=== PATIENT | male | born 1935 | race Caucasian/White ===

== ENCOUNTER 2016-05-18 19:33 | Inpatient (IN) | payer MEDICARE, OTHER ==
--- NOTE | ~2016-05-18 | DS ---
Discharge Summary [place] [id number] [facility] [place] [address] NAME: KAUSHAL KAUFMAN : 33 STATUS : DIS IN PAT#: [id number] AGE: 80 ADM/REG DATE : 05/19/16 MR#: [id number] REPORT SERV DATE: 05/23/16 DICTATED BY: UBALDO MARIE DATE: 05/22/16 REPORT STATUS : Draft TRANSCRIBED BY: MODL DATE: 05/22/16 ADMISSION DATE: 05/19/2016 DISCHARGE DATE: 05/22/2016 DISCHARGE DIAGNOSES: 1. Anaphylactic reaction to penicillin with hypotension. 2. Acute systolic congestive heart failure with ejection fraction of 30% to 35%. 3. Recent left-sided facial abscess incised and drained by dentist. 4. Obesity with body mass index of 36.3. 5. Suspected obstructive sleep apnea. 6. Osteoarthritis of knees. 7. Hypoxic respiratory failure, resolved. HISTORY: This patient states he developed a sore on the inside of his mouth, went to his dentist on 05/18/2016. He reports they told him that the abscess was in the inner buccal mucosa. They did an incision and drainage. They gave him amoxicillin. He took his first dose around 5:00 p.m. and within 10 minutes, started to have itching and tingling all over. He stated he perceived bright lights in front of both eyes, later felt like his throat was closing. A friend advised his to drive him to the emergency room. On arrival, his blood pressure 75/48, O2 saturation 86%, pulse 52, and respirations 16. The ER gave him Benadryl and Solu-Medrol and referred him to our team for inpatient care. He was continued on Solu-Medrol for several days and transitioned to prednisone. He was kept on Levaquin instead of a penicillin-type antibiotic. The abscess on the left cheek essentially was rapidly resolving. The patient was noted to continue to be hypoxic. His blood gas on presentation on room air pH 7.44, pCO2 of 35, PO2 of 57, and bicarbonate 23.5. His chest x-ray on admission to the hospital revealed borderline cardiomegaly with some pulmonary vascular congestion. He did receive some diuretics and had a chest x-ray followup on 05/21/2016 that showed improvement of the pulmonary edema, but not complete clearing. The patient has no history of cardiac disease and did have an echocardiogram on 08/08/2015 showing normal left ventricular ejection fraction of 55%. He also had a nuclear stress test on 08/15/2015 revealing no ischemia and ejection fraction greater than 60%. This was preop before he had a shoulder surgery. Currently, we repeated his echocardiogram on 05/21/2016, left atrial size 3.7 cm, left ventricular ejection fraction reduced to 30% to 35%, otherwise, normal findings. He has a stable left bundle-branch block pattern. Therefore, the patient has new acute systolic congestive heart failure. It is unclear whether this occurred as a reaction to the stress with the anaphylaxis. His family feels that he has been gradually more dyspneic for many months to the point where he can only walk short distances. The patient denies this, but the and cvulzi-of-udg both insist on it. He does have a history of obstructive sleep apnea on a sleep study years ago and was advised to wear a CPAP mask, but states he never tried it. He does have obesity of 36.3. His does describe some daytime somnolence, so he may indeed have underlying obstructive sleep apnea that has led to this point. He was also using a moderate amount of hkgu-adq-mthwyqz Discharge Summary [address] [place]. [address] NAME: KAUSHAL KAUFMAN : 34 STATUS : DIS IN PAT#: [id number] AGE: 80 ADM/REG DATE : 05/19/16 MR#: [id number] REPORT SERV DATE: 05/23/16 DICTATED BY: UBALDO MARIE DATE: 05/22/16 REPORT STATUS : Draft TRANSCRIBED BY: NASIM DATE: 05/22/16 Jamie. I have talked with him twice in the presence of his and cdxbmh-uz-ayl and told him not to use any Aleve, ibuprofen, Advil, Motrin, only use Tylenol for pain. I have also advised him of a 4-g sodium diet, how to track it, monitor, using the labels on food packages. I have also advised him about the importance of measuring his weight every day and if he gains as much as 6 pounds in three days, he is to call his PCP. 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 We are starting congestive heart failure therapy medicines. He will see his PCP in followup. They can decide whether they want to refer him to Cardiology for further nuclear stress test or heart catheterization or just monitoring of his echo over time as well as setting him up for a future sleep study if the patient is willing. DISCHARGE MEDICATIONS: Will include Levaquin 750 mg p.o. daily on 05/22/2016 and 05/23/2016 and Tylenol 650 q.6 hours p.r.n. pain. He uses wfjf-zdq-wavndyu Juice Plus And Men's Plus vitamin as well as some liver vitamin, joint vitamin, glucosamine, Super Beta prostate, and a probiotic. We stopped his amoxicillin obviously, we have stopped his Aleve. We have added aspirin 81 mg daily, Coreg 3.125 mg p.o. b.i.d., lisinopril 5 mg daily, and Lipitor 40 mg daily for his new congestive heart failure. Also, the patient did receive some fluid initially as saline boluses for the first several days, but those were stopped on 05/21/2016, and by the afternoon of 05/21/2016, he was able to be off oxygen completely with his O2 saturation 93% at rest and 94% walking with no oxygen on. His procalcitonin here was 0.28. His urine Legionella and strep antigens were negative, and his influenza A and B were negative. His white count was 18,000 when he got here and has stayed elevated, but he has been on steroids after he arrived. I spent 49 minutes today with the patient and with his and litxuk-xu-mfn and with discharge planning. MONICA/NASIM Ubaldo Marie M.D. / [id number] CC: Tin Castillo M.D.
--- NOTE | ~2016-05-18 | HP ---
History And Physical [place] [address] [facility] [place]. [address] NAME: KAUSHAL CONNER : 33 STATUS : ADM Armida PAT#: [id number] AGE: 80 ADM/REG DATE : 05/18/16 MR#: [id number] REPORT SERV DATE: 05/19/16 DICTATED BY: CRISTÓBAL BELLO DATE: 05/19/16 REPORT STATUS : Draft TRANSCRIBED BY: MODL DATE: 05/19/16 DATE OF ADMISSION: 05/18/2016 CHIEF COMPLAINT: Acute allergic reaction after taking an antibiotic. HISTORY OF PRESENT ILLNESS: This is an 80-year-old male, who presents to the emergency room at [facility] with the above-mentioned complaint. History is obtained from the patient, his family who is at bedside, and reviewing data available on the H.BLOOM system. According to Mr. Conner, he had been to his dentist today when a small abscess in his cheek was drained. This was done primarily without any local anesthetic and apparently they capo linda pus. He was given a prescription for amoxicillin for outpatient oral antibiotic therapy, which he got filled on his way home. He took one right away and about 15 minutes later, started having intense pruritus all over his body, so much that he had to stop the car and get out and scratch. He drove along to a friend's house, parked in his driveway as he had something to do there. When he mentioned this to his friend who happens to be a doctor as well, he said he was having an allergic reaction and asked the patient to go straight to the emergency room. His took over, drove the car, and they came right here. By this time, he had some swelling in his neck or throat and had difficulty swallowing as well. There was no drooling. In the emergency room upon arrival, he was hypoxemic and his blood pressure was 75/48. He also was found to have leukocytosis and pulmonary edema on his chest x-ray. He was started on IV steroids, started on fluid, supplemental oxygen therapy, and within a short time, improved. His saturations came right back up to 95. His pressures were stable and his constitutional symptoms had resolved. Hospitalist Service is asked to admit him for further evaluation and treatment. At the time of my evaluation, he denied any chest pain, palpitations, or orthopnea. He did not have a cough, although two weeks ago, he had a dry cough with flu-like symptoms and he thought he had the flu. No hemoptysis, night sweats, or weight loss. He did not have any recent falls, loss of consciousness. No history of fevers or chills. No history of nausea, vomiting, diarrhea, hematemesis, hematochezia, or hematuria. No other history of recent travel or exposures other than those mentioned above. PAST MEDICAL HISTORY: Significant for hypertension. SOCIAL HISTORY: He has about 52-diep-cckm history of smoking, although he has not smoked in about 30-40 years. He denies recreational drug use or alcohol. FAMILY HISTORY: Noncontributory. MEDICATIONS: At home were reviewed by me in the chart today and reordered by me. REVIEW OF SYSTEMS: History And Physical [address] [address] NAME: KAUSHAL CONNER : 34 STATUS : ADM Armida PAT#: [id number] AGE: 80 ADM/REG DATE : 05/18/16 MR#: [id number] REPORT SERV DATE: 05/19/16 DICTATED BY: CRISTÓBAL BELLO DATE: 05/19/16 REPORT STATUS : Draft TRANSCRIBED BY: NSAIM DATE: 05/19/16 As in history of present illness. All other systems were reviewed in detail and are quite unremarkable. PHYSICAL EXAMINATION: CONSTITUTIONAL: This is a pleasant 80-year-old, not in any acute distress. HEENT: His head is atraumatic, normocephalic. He is alert, awake, oriented to time, place, and person. Pupils are equal, reacting to light and accommodating. External ocular muscles are intact. Membranes are moist and pink. Sclerae are nonicteric. NECK: Supple with no jugular venous distention, lymphadenopathy, or thyromegaly. LUNGS: Clear to auscultation with no wheezes, rubs, or crackles. HEART: Sounds were regular with no murmurs, rubs, or gallops. ABDOMEN: Soft, nontender. Bowel sounds are present. EXTREMITIES: Showed bilateral pitting lower extremity edema with stockings as well. They are not clear on why or what is going on with his lower extremities. NEUROLOGIC: Grossly intact. No focal sensory or motor deficits. Higher functions appeared intact. VITAL SIGNS: Today showed a temperature of 97.5, pulse 52, respirations 16 a minute, blood pressure was 145/72, and oxygen saturations were 96% on 2 L via nasal cannula. LABORATORY DATA: Reviewed on the H.BLOOM system showed a pH of 7.43 on arterial blood gas, pCO2 was 37, PaO2 of 58, and bicarbonate was 23.5; this was on room air. CMP showed sodium of 140, potassium was 4.4, chloride 103 and CO2 of 29, BUN was 18 with a creatinine of 1.12, blood glucose was 117. Troponin was 0.07 and BNP was 240. CBC showed a white blood cell count of 18,000. Otherwise normal hemoglobin, hematocrit, and platelet count. Urinalysis was not done today. Films of the chest x-ray were reviewed by me on the PACS today and interpreted by me. Today's films were compared to prior films also. Today's films showed bilateral patchy infiltrates consistent with pulmonary edema versus pneumonia. A 12-lead EKG done in the emergency room was reviewed and interpreted by me. There is sinus rhythm with a rate of 74 per minute with frequent PVCs. There is left bundle-branch block. IMPRESSION: 1. Acute allergic reaction to amoxicillin. 2. Hypoxemia. 3. Hypotension. 4. Leukocytosis. 5. Bilateral pulmonary infiltrates, possibly from pneumonia versus pulmonary edema. 6. Hypertension. 7. Oral abscess status post drainage. PLAN: We will admit Mr. Conner to the Hospitalist Service with telemetry for a 24-hour observation period. We will start him on IV steroids for his allergic reaction. We will continue this. We will obtain cultures, start him on empiric IV antibiotics for at this time. Start him on bronchodilators and supplemental oxygen therapy to titrate his saturations to maintain them greater than 92%. His hypotension has currently resolved, so has his hypoxemia. We will get CBC and CMP in the morning along with an ABG in the morning on room air. Meanwhile, we will place him on unfractionated heparin for DVT prophylaxis while he is here. I have discussed the above plans with the patient and his family. Their History And Physical [address] [place]. [address] NAME: KAUSHAL CONNER : 33 STATUS : ADM Armida PAT#: [id number] AGE: 80 ADM/REG DATE : 05/18/16 MR#: [id number] REPORT SERV DATE: 05/19/16 DICTATED BY: CRISTÓBAL BELLO DATE: 05/19/16 REPORT STATUS : Draft TRANSCRIBED BY: MODL DATE: 05/19/16 questions were answered in great detail and they are agreeable to the above recommendations. Hospitalist Service will be following him during his stay here. /NASIM Cristóbal Bello M.D. / [id number] CC: Drake Gan Jr, MD
[2016-05-18 20:12] LABS: BASOPHILS 0.2 %; BASOPHILS ABSOLUTE 0.04 10/3/uL (0.0-0.16); EOSINOPHILS ABSOLUTE 0.36 10/3/uL (0.0-0.53); ER CBC TAT 0 Hrs 15 Mins; IMMATURE GRANULOCYTES 0.8 %; IMMATURE GRANULOCYTES ABSOLUTE 0.14 10/3/uL (0.0-0.11); LYMPHOCYTES 7.8 %; LYMPHOCYTES ABSOLUTE 1.41 10/3/uL (0.67-4.30); MEAN CORPUS HGB CONC 33.3 g/dL (32.0-36.0); MEAN CORPUSCULAR HEMOGLOB 31.5 pg (26.0-34.0); MEAN CORPUSCULAR VOLUME 94.6 fL (80-100); MEAN PLATELET VOLUME 10.8 fL (9.2-13.0); MONOCYTES 10.7 %; MONOCYTES ABSOLUTE 1.94 10/3/uL (0.21-1.20); NEUTROPHILS 78.5 %; NEUTROPHILS ABSOLUTE 14.17 10/3/uL (2.02-8.40); PLATELET COUNT 274 10/3/uL (150-400); RBC DISTRIBUTION WIDTH 13.9 % (12.0-16.0); RED CELL COUNT 5.39 10/6/uL (4.7-6.1); WHITE BLOOD CELLS 18.1 10/3/uL (4.5-10.5)
[2016-05-18 20:13] LABS: MANUAL DIFF NO %
[2016-05-18 20:37] LABS: BAND NEUTROPHILS 2 %; ER DIFF TAT 0 Hrs 40 Mins; LYMPHOCYTES 6 %; LYMPHOCYTES ABSOLUTE (CALC) 1.09 10/3/uL (0.67-4.30); MONOCYTES 6 %; MONOCYTES ABSOLUTE (CALC) 1.09 10/3/uL (0.21-1.20); NEUTROPHILS ABSOLUTE (CALC) 15.93 10/3/uL (2.02-8.40); OVALOCYTES 1+ (3-10/OIF) (0-2/OIF); PLATELET ESTIMATE ADQ (ADEQUATE); SEGMENTED NEUTROPHIL (0) 86 %; SPHEROCYTES FEW (3-10/OIF); TEARDROP SHAPED RBCS OCC (0-2/OIF); TOTAL NUCLEATED CELLS 100
[2016-05-18 21:38] LABS: INTERNATIONAL NORMAL RATI 1.2 UNITS (-); PARTIAL THROMBO TIME 27.8 SEC (22.5-37.2); PROTIME (NOT ORD) 14.6 SEC (12.0-14.5)
[2016-05-18 21:49] LABS: BUN (BLOOD UREA NITROGEN) 18 MG/DL (6-23); CALCIUM, SERUM 8.7 MG/DL (8.5-10.4); CHLORIDE, SERUM 103 MMOL/L (96-112); CO2 (CARBON DIOXIDE) 29 MMOL/L (24-34); CREATININE 1.12 MG/DL (0.70-1.30); GFR AFRICAN AMERICAN 71 ML/MIN (>=60); GFR NON AFRICAN AMERICAN 61 ML/MIN (>=60); GLUCOSE, SERUM 117 MG/DL (60-99); POTASSIUM, SERUM 4.4 MMOL/L (3.5-5.3); SODIUM, SERUM 140 MMOL/L (135-148)
[2016-05-18 21:51] LABS: CHEST PAIN PROFILE TAT 0 Hrs 24 Mins; TROPONIN I 0.07 NG/ML (<0.05)
[2016-05-18] MEDS ORDERED: [UNRECOGNIZED DRUG - OTHER] PO (22:59)
[2016-05-18] MEDS ORDERED: JUICE PLUS PO (22:59)
[2016-05-18] MEDS ORDERED: JOINT VITAMIN PO (23:03)
[2016-05-18] MEDS ORDERED: GLUCOSAMINEPO PO (23:03)
[2016-05-18] MEDS ORDERED: VITAMIN PO (23:03)
[2016-05-18] MEDS ORDERED: PROBIOTIC PO (23:04)
[2016-05-18] MEDS ORDERED: AMOXIL500 MG PO (23:04)
[2016-05-18] MEDS ORDERED: SUPER BETA PROSTATE PO (23:04)
[2016-05-18] MEDS ORDERED: ALEVE220 MG PO (23:05)
[2016-05-18 23:35] LABS: BE (BASE EXCESS) -0.4 MEQ/L (0 +/- 2.5); HCO3 (ACTUAL BICARBONATE) 23.5 MEQ/L (23-27); INSTRUMENT SERIAL # 8087; PCO2 (CO2 TENSION) 37 MMHG (35-45); PO2 (O2 TENSION) 58 MMHG (79-93); pH 7.43 (7.37-7.43)
[2016-05-18 23:36] LABS: ALLENS TEST Pos; CARBOXYHEMOGLOBIN 1.3 % (0-3); HEMOBLOGIN CONTENT 15.9 G/DL (14-18); METHEMOGLOBIN 0.4 % (0-3); O2 CONTENT 20.1 VOL% (18-24); SAMPLE Arterial
[2016-05-19 00:13] LABS: INFLUENZA A SCREEN NEGATIVE (NEGATIVE); INFLUENZA B SCREEN NEGATIVE (NEGATIVE)
[2016-05-19 00:55] LABS: ASCORBIC ACID (UR NOT ORDER) 20 (NEG); BILIRUBIN, URINE NEGATIVE (NEG); KETONE, URINE NEGATIVE (NEG); LEUKOCYTE ESTERASE(NOT OR NEG (NEG); WBC (NOT ORDERED) (RFLEX) 1 (0-5)
[2016-05-19 04:14] LABS: BASOPHILS 0 %; EOSINOPHILS 0.1 %; EOSINOPHILS ABSOLUTE 0.01 10/3/uL (0.0-0.53); HEMOGLOBIN 15.1 g/dL (13.6-17.8); IMMATURE GRANULOCYTES 0.3 %; IMMATURE GRANULOCYTES ABSOLUTE 0.03 10/3/uL (0.0-0.11); LYMPHOCYTES 9.1 %; LYMPHOCYTES ABSOLUTE 0.84 10/3/uL (0.67-4.30); MEAN CORPUS HGB CONC 33.5 g/dL (32.0-36.0); MEAN CORPUSCULAR VOLUME 95.6 fL (80-100); MEAN PLATELET VOLUME 9.4 fL (9.2-13.0); MONOCYTES 1.2 %; MONOCYTES ABSOLUTE 0.11 10/3/uL (0.21-1.20); NEUTROPHILS 89.3 %; RBC DISTRIBUTION WIDTH 13.4 % (12.0-16.0); RED CELL COUNT 4.72 10/6/uL (4.7-6.1)
[2016-05-19 04:20] LABS: HEMATOCRIT 45.1 % (40.0-51.0); MANUAL DIFF NO %; PLATELET COUNT 191 10/3/uL (150-400); WHITE BLOOD CELLS 9.2 10/3/uL (4.5-10.5)
[2016-05-19 04:22] LABS: BUN (BLOOD UREA NITROGEN) 18 MG/DL (6-23); CALCIUM, SERUM 8.6 MG/DL (8.5-10.4); CHLORIDE, SERUM 105 MMOL/L (96-112); CO2 (CARBON DIOXIDE) 28 MMOL/L (24-34); CREATININE 1.15 MG/DL (0.70-1.30); GFR AFRICAN AMERICAN 69 ML/MIN (>=60); GFR NON AFRICAN AMERICAN 59 ML/MIN (>=60); PHOSPHORUS, SERUM 3.3 MG/DL (2.5-4.5); POTASSIUM, SERUM 4.8 MMOL/L (3.5-5.3); SODIUM, SERUM 141 MMOL/L (135-148)
[2016-05-19 04:24] LABS: GLUCOSE, SERUM 187 MG/DL (60-99)
[2016-05-19 05:45] LABS: ALLENS TEST Pos; BE (BASE EXCESS) -0.1 MEQ/L (0 +/- 2.5); CARBOXYHEMOGLOBIN 0.5 % (0-3); HCO3 (ACTUAL BICARBONATE) 23.5 MEQ/L (23-27); HEMOBLOGIN CONTENT 15.5 G/DL (14-18); INSTRUMENT SERIAL # 35151; METHEMOGLOBIN 0.5 % (0-3); O2 CONTENT 19.5 VOL% (18-24); OPERATOR ID 35190; PCO2 (CO2 TENSION) 35 MMHG (35-45); PO2 (O2 TENSION) 57 MMHG (79-93); SAMPLE Arterial; pH 7.44 (7.37-7.43)
[2016-05-20 05:15] LABS: BASOPHILS 0 %; EOSINOPHILS 0 %; HEMOGLOBIN 13.5 g/dL (13.6-17.8); IMMATURE GRANULOCYTES 0.4 %; IMMATURE GRANULOCYTES ABSOLUTE 0.07 10/3/uL (0.0-0.11); LYMPHOCYTES 4.5 %; MEAN CORPUS HGB CONC 33.3 g/dL (32.0-36.0); MEAN CORPUSCULAR HEMOGLOB 31.8 pg (26.0-34.0); MEAN CORPUSCULAR VOLUME 95.3 fL (80-100); MEAN PLATELET VOLUME 9.3 fL (9.2-13.0); MONOCYTES 4.9 %; MONOCYTES ABSOLUTE 0.98 10/3/uL (0.21-1.20); NEUTROPHILS 90.2 %; NEUTROPHILS ABSOLUTE 18.04 10/3/uL (2.02-8.40); PLATELET COUNT 197 10/3/uL (150-400); RBC DISTRIBUTION WIDTH 13.6 % (12.0-16.0); RED CELL COUNT 4.25 10/6/uL (4.7-6.1)
[2016-05-20 05:20] LABS: HEMATOCRIT 40.5 % (40.0-51.0); MANUAL DIFF NO %
[2016-05-20 05:29] LABS: CHLORIDE, SERUM 104 MMOL/L (96-112); CO2 (CARBON DIOXIDE) 24 MMOL/L (24-34); CREATININE 1.33 MG/DL (0.70-1.30); GFR AFRICAN AMERICAN 58 ML/MIN (>=60); GFR NON AFRICAN AMERICAN 50 ML/MIN (>=60); GLUCOSE, SERUM 179 MG/DL (60-99); PHOSPHORUS, SERUM 2.8 MG/DL (2.5-4.5); POTASSIUM, SERUM 4.5 MMOL/L (3.5-5.3); SODIUM, SERUM 141 MMOL/L (135-148)
[2016-05-20 05:35] LABS: BUN (BLOOD UREA NITROGEN) 34 MG/DL (6-23)
[2016-05-21 04:45] LABS: BASOPHILS 0.1 %; BASOPHILS ABSOLUTE 0.01 10/3/uL (0.0-0.16); EOSINOPHILS 0 %; HEMATOCRIT 40.9 % (40.0-51.0); HEMOGLOBIN 13.1 g/dL (13.6-17.8); IMMATURE GRANULOCYTES 0.3 %; IMMATURE GRANULOCYTES ABSOLUTE 0.05 10/3/uL (0.0-0.11); LYMPHOCYTES 4.3 %; MEAN CORPUSCULAR HEMOGLOB 30.4 pg (26.0-34.0); MEAN CORPUSCULAR VOLUME 94.9 fL (80-100); MEAN PLATELET VOLUME 9.6 fL (9.2-13.0); MONOCYTES 4.4 %; MONOCYTES ABSOLUTE 0.82 10/3/uL (0.21-1.20); NEUTROPHILS 90.9 %; NEUTROPHILS ABSOLUTE 17.03 10/3/uL (2.02-8.40); PLATELET COUNT 217 10/3/uL (150-400); RBC DISTRIBUTION WIDTH 13.9 % (12.0-16.0); RED CELL COUNT 4.31 10/6/uL (4.7-6.1); WHITE BLOOD CELLS 18.7 10/3/uL (4.5-10.5)
[2016-05-21 04:57] LABS: MANUAL DIFF NO %
[2016-05-21 05:11] LABS: BUN (BLOOD UREA NITROGEN) 36 MG/DL (6-23); CALCIUM, SERUM 8.1 MG/DL (8.5-10.4); CHLORIDE, SERUM 109 MMOL/L (96-112); CK-MB 6.9 NG/ML; CKMB INDEX (NOT ORD) 3.9; CO2 (CARBON DIOXIDE) 24 MMOL/L (24-34); CPK 178 U/L (0-200); CREATININE 1.12 MG/DL (0.70-1.30); GFR AFRICAN AMERICAN 71 ML/MIN (>=60); GFR NON AFRICAN AMERICAN 61 ML/MIN (>=60); GLUCOSE, SERUM 165 MG/DL (60-99); PHOSPHORUS, SERUM 2.8 MG/DL (2.5-4.5); POTASSIUM, SERUM 4.5 MMOL/L (3.5-5.3); SODIUM, SERUM 142 MMOL/L (135-148); TROPONIN I 0.07 NG/ML (<0.05)
[2016-05-22] MEDS ORDERED: ASAB PO (10:07)
[2016-05-22] MEDS ORDERED: COREG3 PO (10:08)
[2016-05-22] MEDS ORDERED: LIPITOR40 (10:08)
[2016-05-22] MEDS ORDERED: LEVAQUIN750 MG PO (10:10)
[2016-05-22] MEDS ORDERED: T PO (10:11)
[2016-05-22] MEDS ORDERED: PRIN5 PO (10:12)
== END 2016-05-22 11:55 | disposition home or self-care (01) | DRG 915 ==
LOC: ER 19:33 → CDU1 23:59 → 2SO 05-21 15:25
PROVIDERS: Emergency Medicine; Hospitalist; Internal Medicine; Internal Medicine Pulmonary Disease
DX: T88.6XXA Anaphylactic reaction due to adverse effect of correct drug or medicament properly administered, initial encounter (principal); I50.21 Acute systolic (congestive) heart failure; J96.01 Acute respiratory failure with hypoxia; I95.9 Hypotension, unspecified; J81.0 Acute pulmonary edema; K12.2 Cellulitis and abscess of mouth; T36.0X5A Adverse effect of penicillins, initial encounter; Y92.009 Unspecified place in unspecified non-institutional (private) residence as the place of occurrence of the external cause; R09.02 Hypoxemia; I10 Essential (primary) hypertension; M17.0 Bilateral primary osteoarthritis of knee; I49.3 Ventricular premature depolarization; I44.7 Left bundle-branch block, unspecified; R73.9 Hyperglycemia, unspecified; G47.33 Obstructive sleep apnea (adult) (pediatric); E66.09 Other obesity due to excess calories; Z68.36 Body mass index [BMI] 36.0-36.9, adult
CPT/HCPCS: 36600; 71010; 71020; 80048; 80069; 81001; 82550; 82553; 82805; 83605; 83735; 83880; 84100; 84145; 84484; 85025; 85610; 85730; 87040; 87449; 87804; 93005; 94640; 96374; 96375; 99285; A9270-GY; C8929; J1200; J1940; J1956; J2920; J2930; Q9957